=== PATIENT | female | born 1945 | race Two or more races ===

== ENCOUNTER → 2018-09-28 | Outpatient (CLI) | payer MEDICARE ==
--- NOTE | 2018-09-28 14:51 | RAD ---
MR of the left knee HISTORY: Left knee pain. No known injury. TECHNIQUE: Routine multiplanar sequences are obtained. FINDINGS: No evidence of a medial or lateral meniscal tear. Anterior and posterior cruciate ligaments are intact. Medial collateral ligament is intact. Iliotibial band unremarkable. Fibular collateral ligament, biceps femoris tendon and popliteus tendon are intact. Extensor mechanism intact. Trace joint fluid. No significant Moise's cyst. No acute articular cartilage defect. There does appear to be some chondral thinning at the patellofemoral joint. Small subchondral cysts at the anterior femoral condyles likely degenerative. Small intraosseous cyst proximal tibia appears nonaggressive. No aggressive bone destruction or acute fracture. IMPRESSION: 1. There is evidence of chondral thinning at the patellofemoral joint. 2. No other internal derangement is identified. Electronically signed by: Ruben Caldwell MD (09/28/2018 2:46 PM) [id number]
--- NOTE | 2018-09-28 14:55 | RAD ---
MR of the right shoulder HISTORY: Right shoulder pain, cannot elevate arm. No known injury. TECHNIQUE: Routine multiplanar sequences. FINDINGS: There is mild motion degradation. Acromioclavicular joint is intact. Small subacromial's per. Full-thickness tear of the supraspinatus tendon measures about 2.5 cm AP diameter. By 2.5 cm retraction. There is tendinosis through the more posterior rotator cuff with partial tearing. Subscapularis high-grade tear. Moderate muscle volume loss with mild fatty infiltration. Mild fluid in the subdeltoid bursa. There is a tear of the superior labrum. Mild degenerative changes at the acromioclavicular joint. The biceps tendon appears to be subluxed medially, medial to the lesser tuberosity. Tendon is mildly thickened. Small joint effusion. No bone lesion or acute fracture. Hypertrophic changes at the greater tuberosity compatible with rotator cuff disease. IMPRESSION: 1. Moderate retracted rotator cuff tear of the supraspinatus tendon, partial tearing through the infraspinatus tendon. High-grade subscapularis tendon tear. 2. Superior labral tear. 3. Medial subluxation of biceps tendon. Electronically signed by: Ruben Caldwell MD (09/28/2018 2:50 PM) [id number]
== END | disposition home or self-care (01) ==
LOC: MRI 12:21
PROVIDERS: ATTEND Orthopaedic Surgery
DX: S46.011A Strain of muscle(s) and tendon(s) of the rotator cuff of right shoulder, initial encounter (principal); S43.431A Superior glenoid labrum lesion of right shoulder, initial encounter; S43.001A Unspecified subluxation of right shoulder joint, initial encounter; M25.562 Pain in left knee; X58.XXXA Exposure to other specified factors, initial encounter; Y93.89 Activity, other specified; Y92.89 Other specified places as the place of occurrence of the external cause; Y99.8 Other external cause status
CPT/HCPCS: 73221; 73721